=== PATIENT | female | born 1990 | race Caucasian/White ===

== ENCOUNTER 2019-07-28 07:49 | Day surgery (SDC) | payer OTHER ==
[2019-07-28] MEDS ORDERED: SCOPOLAMINE HYDROBROMIDE PATCH TD ONE (08:17)
[2019-07-28] MEDS ORDERED: Ringers Lactate 1,000 ML IV ONE ×2 (08:17→08:22)
[2019-07-28] MEDS ORDERED: CEFAZOLIN/SWI 1gm 1 GM/10 ML SYR ONE (08:17)
[2019-07-28 08:19] LABS: Specific Gravity 1.015 (1.005-1.030)
[2019-07-28] MEDS ORDERED: CEFAZOLIN SODIUM 1 GM/VIAL ONE (08:20)
[2019-07-28] MEDS ORDERED: NS 0.9% VIAL 20 ML ONE (08:20)
[2019-07-28] MEDS ORDERED: GENTAMICIN SULF 80 MG/2ML INJ ONE (08:20)
[2019-07-28] MEDS ORDERED: Mastisol Adhesive Liq ONE ×2 (08:21→09:37)
[2019-07-28] MEDS ORDERED: BACITRACIN 50000 UNIT VIAL ONE (08:21)
[2019-07-28] MEDS ORDERED: PROPOFOL 200 MG/20 ML VIAL IV ONE (08:44)
[2019-07-28] MEDS ORDERED: MIDAZOLAM HCL 2 MG/2 ML INJ ONE (08:45)
[2019-07-28] MEDS ORDERED: FENTANYL CITR 250 MCG/5 ML ONE ×2 (08:45→11:11)
[2019-07-28] MEDS ORDERED: ROCURONIUM 50 MG/5 ML VIAL IV ONE ×3 (08:45→12:43)
[2019-07-28] MEDS ORDERED: LIDOCAINE 1% MPF 5 ML VIAL ONE (08:45)
[2019-07-28] MEDS ORDERED: ONDANSETRON 4 MG/2 ML VIAL ONE ×2 (08:45→13:25)
[2019-07-28] MEDS ORDERED: dexAMETHasone 10 MG/ML VIAL ONE (08:45)
[2019-07-28] MEDS: Ringers Lactate 1,000 ML IV ONE ×2 (10:58→11:13)
[2019-07-28] MEDS ORDERED: NEOSTIGMINE 1 MG/ML -5 ML ONE (13:25)
[2019-07-28] MEDS ORDERED: GLYCOPYRROLATE 0.2 MG/ML SYR ONE ×2 (13:25)
[2019-07-28] MEDS ORDERED: KETOROLAC 30 MG/ML INJ ONE (13:25)
[2019-07-28] MEDS ORDERED: HYDROMORPHONE HCL 1 MG/ML INJ ONE (14:39)
[2019-07-28] MEDS ORDERED: PROMETHAZINE 25 MG/ML VIAL ONE (14:39)
[2019-07-28 14:59] VITALS: TEMP 97.9
[2019-07-28] MEDS ORDERED: CODEINE 30MG/APAP 300MG TAB ONE (16:08)
[2019-07-28 16:39] VITALS: BP 132/68; O2SAT 100
--- NOTE | 2019-07-28 23:37 | OP ---
Surgeon: Jian Howard MD Health Services Information Specialist: Ed. Preoperative Diagnosis: Breast descent and asymmetry. Postoperative Diagnosis: Breast descent and asymmetry. Procedure Performed: Lift. Anesthesia: General. Procedure In Detail: After satisfactory induction of general anesthesia, the breast was prepped with DuraPrep and dry sterile drapes applied in the usual manner. A 45 mm template was used to outline t he right areola. Then transverse curvilinear inferior incisions were made. This was done at the [facility] time. Then the punch was used to core out Oliveros glands and then the wound was out of the dermis. The transverse incisions were made bilaterally simultaneously and the flaps were elev ated towards the sternum, clavicle, and anterior axillary line. Flap was thinned to 1.2 cm thickness and conization performed after the inferior incision was made. Prior to conization, late ral excess breast tissue was excised with a scalpel. Conization was performed with 2-0 PDS sutures t he right side first and then the straps were elevated at 12 o'clock, 1:30, and 3 o'clock position. S traps were then woven in and out the pectoralis major muscle back to base of cone, back to pectoralis muscle, back to the base of the cone. This was done for 12 o'clock and 130 straps. The 3 o'clock s trap was sewn over the sternum at the 3 o'clock position with 2-0 Ethibond, 2-0 PDS were used on the strap. Wound was temporarily stapled shut left side down in a mirror-image manner and the amount rem gualberto from the right breast total was 220 g, left was 124 g. Patient checked for asymmetry, excess do g ears were removed as well as corrected and then the patient had a 10 SUMAN brought out of t he axilla and sewn in place with 2-0 silk and the wound was closed with 3-0 Vicryl subcu followed by 3-0 PDS running subcuticular tied in the vertical meridian of the breast. The left side was done aft er the right side was complete. The patient was sat up. Site for new nipple-areolar complex was mar ked out. A 45 template used to core out the tissue, marked it, excised with a scalpel and electrocau med. Nipples were delivered and sewn with interrupted 4-0 PDS followed by 4-0 PDS running subcuticu lar. Dressings consisting of tincture of benzoin, Steri-Strips, 5 x 5's, fluffs, and Rony wrap. The patient tolerated the procedure well and returned to the recovery room. The amount removed from the right breast was 220, left breast was 124. WILIAN/RAYMOND Voice ID: [id number] Report ID: [id number]
== END 2019-07-28 17:02 | disposition home or self-care (01) ==
LOC: OR 07:49
PROVIDERS: ATTEND Specialist
PROC: 0H0V0ZZ Alteration of Bilateral Breast, Open Approach (ICD-10-PCS; principal; 2019-07-28 09:00)
DX: N64.81 Ptosis of breast (principal); N64.89 Other specified disorders of breast; E07.9 Disorder of thyroid, unspecified; Z88.2 Allergy status to sulfonamides; Z91.048 Other nonmedicinal substance allergy status
CPT/HCPCS: 81025; 88305; 19316; J2704; J2550; J1580; J2250; J3010 ×2; J1100; J1170; J2710; J0690 ×2; J7120 ×2; J2405 ×2